=== PATIENT | male | born 1995 | race Caucasian/White ===

== ENCOUNTER 2018-07-04 18:00 | Emergency (ER) | payer OTHER ==
[2018-07-04] MEDS ORDERED: LIDOCAINE 5% TOPICAL PATCH TP ONE (18:05)
[2018-07-04] MEDS ORDERED: KETOROLAC TROMETHAMINE 60 MG/2 ML VIAL IVPUSH ONE (18:05)
[2018-07-04 18:08] VITALS: BP 126/77; PULSE 56; TEMP 98; BMI 23.6
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
[2018-07-04] MEDS ORDERED: KETOROLAC TROMETHAMINE 60 MG/2 ML VIAL ONE (18:16)
[2018-07-04] MEDS ORDERED: LIDOCAINE 5% TOPICAL PATCH ONE (18:16)
[2018-07-04] MEDS ORDERED: KETOROLAC TROMETHAMINE 60 MG/2 ML VIAL IM ONE (18:28)
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
[2018-07-04] MEDS ORDERED: LIDOCAINE PATCH REMOVAL MC SCH (22:00)
== END 2018-07-04 18:35 | disposition home or self-care (01) ==
LOC: FER 18:00
PROC: 3E0333Z Introduction of Anti-inflammatory into Peripheral Vein, Percutaneous Approach (ICD-10-PCS; principal; 2018-07-04)
DX: M54.2 Cervicalgia (principal); V43.52XA Car driver injured in collision with other type car in traffic accident, initial encounter; Y93.89 Activity, other specified; Y92.410 Unspecified street and highway as the place of occurrence of the external cause
CPT/HCPCS: 99283-25